=== PATIENT | male | born 1995 | race Caucasian/White ===

== ENCOUNTER → 2018-03-07 | Outpatient (CLI) | payer BC ==
[~2018-03-07] MED LIST: GADOBENATE 529MG/1ML 15ML VIAL IVP ONE; LIDO20SO25 MM; LOR5/325 PO; SULF-196 PO
--- NOTE | 2018-03-07 13:22 | RADIOLOGY IMAGING REPORT ---
FACILITY: [facility] [place] PATIENT NAME: Cj Gotti : 1995 MR: [id number] V: [id number] EXAM DATE: ORDERING PHYSICIAN: TIFFANIE BORJAS TECHNOLOGIST: Location: [facility] Patient: Cj Gotti : 1995 Visit/Account:[id number] Date of Sevice: 03/07/2018 EXAMINATION: MRI Brain without intravenous contrast MRI Brain with intravenous contrast HISTORY: Pineal cyst. Numbness in the upper and lower extremities, worst in the left arm and left u pper leg. COMPARISON: None available. TECHNIQUE: Multi-planar, multi-sequence brain MRI was performed before and after IV gadolinium. CONTRAST: 15 mL of IV MultiHance FINDINGS: Brain volume: Normal. Sagittal midline structures: 1 cm pineal cyst. Otherwise negative. Ventricles: Negative. Acute ischemic changes: None. Hemorrhage: None. Masses / edema: None. Enhancement: Negative. Borges-white: Negative. White matter: Negative. Vessels: Negative. Extra-axial: Negative. Calvarium / scalp: Negative. Skull base: Negative. Visualized sinuses / orbits: Mild mucosal thickening in the maxillary sinuses and ethmoid air cells. Rightward nasal septal deviation. Visualized upper neck: Negative. IMPRESSION: 1. 1 cm pineal cyst. No acute intracranial abnormality or mass. 2. Mild mucosal thickening in the maxillary sinuses and ethmoid air cells. Rightward nasal septal dev iation. Report Dictated By: Jovanny Hawk MD at 03/07/2018 1:14 PM Report E-Signed By: Jovanny Hawk MD at 03/07/2018 1:18 PM WSN:[id number]
== END ==
LOC: MRI 01:07
PROVIDERS: ATTEND Nurse Practitioner Family
DX: G93.0 Cerebral cysts (principal); R20.2 Paresthesia of skin
CPT/HCPCS: 70553; A9577